=== PATIENT | male | born 1985 | race Caucasian/White ===

== ENCOUNTER 2018-10-15 19:25 | Emergency (ER) | payer SELFPAY ==
[2018-10-15 19:32] VITALS: BP 139/97
[2018-10-15] MEDS ORDERED: PROMETHAZINE HCL 25 MG TABLET PO ONE (19:56)
[2018-10-15] MEDS ORDERED: OXYCODONE-ACETAMINOPHEN 5-325 MG TABLET PO ONE (19:56)
[2018-10-15] MEDS ORDERED: PENICILLIN V POTASSIUM 500 MG TABLET PO ONE (19:56)
--- NOTE | 2018-10-15 20:01 | ER Document Report ---
HPI - HPI Patient complains to provider of: left sided facial swelling, dental pain Time Seen by Provider: 10/15/18 19:38 Pain Level: 4 Context: Patient is a 33-year-old male that comes to the emergency department for chief complaint of 2 days of worsening pain and now slight facial swelling on the left side of his face. Pain radiates up towards the ear on the left side. He denies sore throat, fever chills, nausea or vomiting, headache. He denies any daily medications or medical problems. Past Medical History - General Information source: Patient - Social History Smoking Status: Never Smoker Frequency of alcohol use: None Lives with: Family Family History: Reviewed & Not Pertinent - Medical History Medical History: Negative Surgical Hx: Negative - Immunizations Immunizations up to date: Yes Hx Diphtheria, Pertussis, Tetanus Vaccination: Yes Vertical Provider Document - CONSTITUTIONAL General Appearance: WD/WN, No Apparent Distress - INFECTION CONTROL TRAVEL OUTSIDE OF THE [place] IN LAST 30 DAYS: No - HEENT HEENT: Atraumatic, Normocephalic. negative: Normal ENT Exam - Soft tissue swelling to the left jaw/cheek which is minimal, there is no significant submandibular swelling, no evidence of Jan's angina. There is tenderness over the left upper gumline with some erythema of the gumline although I do not appreciate obvious fracture or abscess. Remaining oral pharyngeal exam is unremarkable. Ear exam is unremarkable. - NECK Neck: Normal Inspection - RESPIRATORY Respiratory: Breath Sounds Normal, No Respiratory Distress - CARDIOVASCULAR Cardiovascular: Regular Rate, Regular Rhythm - GI/ABDOMEN Gastrointestinal: Abdomen Soft, Abdomen Non-Tender - BACK Back: Normal Inspection - MUSCULOSKELETAL/EXTREMETIES Musculoskeletal/Extremeties: MAEW, FROM, Non-Tender - NEURO Level of Consciousness: Awake, Alert, Appropriate - DERM Integumentary: Warm, Dry, No Rash Course - Re-evaluation Re-evalutation: No obvious caries, no abscess, no evidence of Jan's angina, examination is consistent with a dental infection with erythema and tenderness of the upper gumline on the left with soft tissue swelling over the left side of the face/jaw. Patient will be started on antibiotics, referred to a dentist, and I discussed return precautions in detail. Patient states satisfaction and agreement. - Vital Signs Vital signs: Temp Pulse Resp BP Pulse Ox 98.8 F 69 16 139/97 H 99 10/15/18 19:30 10/15/18 19:30 10/15/18 19:30 10/15/18 19:30 10/15/18 19:30 Discharge - Discharge Clinical Impression: Pain, dental, Facial swelling Condition: Stable Disposition: HOME, SELF-CARE Additional Instructions: Your evaluation is consistent with a dental infection, take antibiotics as prescribed to completion. You can take 1000 mg of Tylenol every 8 hours and 600 mg of ibuprofen every 6 hours if needed for pain, symptoms should resolve with treatment. Follow-up with the dental referral listed below for additional management to prevent this from happening again. Return for any concerning or worsening symptoms including increased swelling or pain. [facility] [address] [place] [address], [id number] Prescriptions: Penicillin V Potassium [Penicillin Vk 500 mg Tablet] 500 mg PO BID #20 tablet
== END 2018-10-15 20:15 | disposition home or self-care (01) ==
LOC: ER 19:25
DX: K02.9 Dental caries, unspecified (principal); R22.0 Localized swelling, mass and lump, head
CPT/HCPCS: 99282